=== PATIENT | female | born 1975 | race African-American/Black ===

== ENCOUNTER → 2018-12-20 | Outpatient (CLI) | payer BC ==
--- NOTE | 2018-12-20 16:15 | PCVCIMAG ---
APPROVED REPORT Study performed: 12/20/2018 14:59:35 EXAM: Comprehensive 2D, Doppler, and color-flow Echocardiogram Patient Location: Echo lab Room #: 2Status: routine BSA: 2.01 HR: 68 bpmBP: 116/78 mmHg Rhythm: NSR Other Information Study Quality: Good Risk Factors: Cardiac Risk Factors: FHX of CAD Indications Palpitations Chest Pain 2D Dimensions IVSd: 7.10 (7-11mm)LVOT Diam: 20.68 (18-24mm) LVDd: 51.51 mm PWd: 6.57 (7-11mm)Ascending Ao: 20.09 (22-36mm) LVDs: 30.44 (25-40mm) Left Atrium: 30.93 (27-40mm) Aortic Root: 20.97 mm LV Single Plane 4CH: 51.94 % LV Single Plane 2CH: 67.99 % Biplane EF: 56.0 % Volumes Left Atrial Volume (Systole) Single Plane 4CH: 38.67 mLSingle Plane 2CH: 39.87 mL Biplane LA Volume: 41.00 mLLA ESV Index: 20.00 mL/m2 Aortic Valve AoV Peak Rashid.: 1.38 m/s AO Peak Gr.: 7.59 mmHgLVOT Max P.18 mmHg LVOT Max V: 1.02 m/s JACKELYN Vmax: 2.49 cm2 Mitral Valve E/A Ratio: 1.0 MV Decel. Time: 215.34 ms MV E Max Rashid.: 0.80 m/s MV A Rashid.: 0.83 m/s IVRT: 100.35 ms TDI E/Lateral E': 7.27E/Medial E': 7.27 Medial E' Rashid.: 0.11 m/s Lateral E' Rashid.: 0.11 m/s Pulmonary Valve PV Peak Rashid.: 1.02 m/sPV Peak Gr.: 4.13 mmHg Pulmonary Vein P Vein S: 0.74 m/sP Vein A: 0.29 m/s P Vein D: 0.29 m/sP Vein A Dur.: 86.5 msec P Vein S/D Ratio: 2.55 Tricuspid Valve TV Vmax: 0.50 m/s Left Ventricle The left ventricle is normal size. There is normal LV segmental wall motion. There is normal left ventricular wall thickness. Left ventricular systolic function is normal. The left ventricular ejection fraction is within the normal range. LVEF is 55-60%. The left ventricular diastolic function is normal. Right Ventricle The right ventricle is normal size. The right ventricular systolic function is normal. Atria The left atrium size is normal. The right atrium size is normal. Aortic Valve Aortic valve is trileaflet. The aortic valve is normal in structure. No aortic regurgitation is present. There is no aortic valvular stenosis. Mitral Valve The mitral valve is normal in structure. There is no mitral valve regurgitation noted. No evidence of mitral valve stenosis. Tricuspid Valve The tricuspid valve is normal in structure. No pulmonary hypertension. Pulmonic Valve The pulmonary valve is normal in structure. There is no pulmonic valvular regurgitation. Great Vessels The aortic root is normal in size. The ascending aorta is normal in size. Aortic arch is normal in caliber. IVC is normal in size and collapses >50% with inspiration. Pericardium There is no pericardial effusion. There is no pleural effusion. <Conclusion> The left ventricle is normal size. There is normal left ventricular wall thickness. Left ventricular systolic function is normal. The left ventricular diastolic function is normal. The right ventricle is normal size. The left atrium size is normal. The aortic valve is normal in structure. The mitral valve is normal in structure. The tricuspid valve is normal in structure.
--- NOTE | 2018-12-20 16:27 | PCVCIMAG ---
APPROVED REPORT Study performed: 12/20/2018 15:35:16 Exam: Stress Echocardiogram Indication: Chest pain , Palpitations Patient Location: Echo lab Stress Nurse: Alana Friedman RN Room #: 2 Status: routine Ht: 5 ft 5 in HR: 80 bpm BP: 116/78 mmHg Rhythm: NSR Medical History Cardiac Risk Factors: FHX of CAD Previous Cardiac Procedures: none Pretest Chest Pain Characteristics: No chest pain Exercise History: Indeterminate Procedure The patient underwent an Exercise Stress Test using the Twin Protocol. Blood pressure, heart rate, and EKG were monitored. An Echocardiogram was performed by transport tank technician in four stages in quad fashion. At peak stress, four selected images were obtained and placed side by side with resting images for comparison. Stress Test Details Stress Test: Exercise stress testing was performed using a Twin protocol. HR Resting HR: 80 bpmMax Heart Rate (APMHR): 179 bpm Max HR Achieved: 155 bpmTarget HR (85% APMHR): 152 bpm % of APMHR: 86 Recovery HR: 90 bpm HR response to stress: Normal HR response to stress BP Resting BP: 116/78 mmHg Max BP: 164/80 mmHg Recovery BP: 120/70 mmHg BP response to stress: Normal blood pressure response to stress. ECG Resting ECG: Sinus Rhythm Stress ECG: Sinus Rhythm ST Change: Non-ischemic Arrhythmia: None Recovery ECG: Sinus Rhythm Recovery ST Change: Non-ischemic Recovery Arrhythmia: None Clinical Reason for Termination: Maximal effort Stress Symptoms: fatigue Exercise duration: 6 min 00 sec Highest Stage Achieved: Stage 2: 2.5 mph at 12% grade. Exercise capacity: 7 METs Overall Exercise Capacity for Age: Poor Angina Score: None No complications. Stress ECG Conclusion The patient exercised according to the TWIN protocol for 6:00 mins; achieving a work level of 7.0 METS. The resting heart rate of 80 bpm wicho to a maximum heart rate of 155 bpm. This value represent 86% of the maximal, age-predicted heart rate. The resting blood pressure of 116/78 mmHg, wicho to a maximum blood pressure of 164/80 mmHg. The exercise test was stopped due to fatigue. Pre-Stress Echo The resting Echocardiogram showed normal left ventricular contractility with an estimated Ejection Fraction of about 55-60%. Normal wall motion in all segments on baseline images. Post-Stress Echo The stress Echocardiogram showed normal left ventricular contractility with an estimated Ejection Fraction of about 65-70%. Normal augmentation of wall motion in all segments on post stress images. Clinical No clinical or ECG evidence for ischemia. Conclusion Clinical Response: Non-ischemic Exercise Capacity: Below Average Stress ECG Response: Non-ischemic Stress Echo Images: Non-ischemic No clinical, EKG or echocardiographic evidence for ischemia. No echocardiographic evidence for exercise induced ischemia. Normal stress echocardiogram with maximal exercise stress. <Conclusion> No clinical, EKG or echocardiographic evidence for ischemia. No echocardiographic evidence for exercise induced ischemia. Normal stress echocardiogram with maximal exercise stress.
== END | disposition home or self-care (01) ==
LOC: PCVCIMAG 15:03
PROVIDERS: ATTEND Internal Medicine Cardiovascular Disease
DX: R07.9 Chest pain, unspecified (principal); E78.00 Pure hypercholesterolemia, unspecified; R00.2 Palpitations; Z88.0 Allergy status to penicillin
CPT/HCPCS: 93306; 93351